=== PATIENT | female | born 1990 | race Caucasian/White ===

== ENCOUNTER 2016-11-27 12:14 | Emergency (ER) | payer SELFPAY | END 2016-11-27 13:33 | disposition home or self-care (01) | LOC: MADERS 12:14 → EDBD 12:14 → MADERS 13:33 | DX: J06.9 Acute upper respiratory infection, unspecified (principal); J02.9 Acute pharyngitis, unspecified; F17.210 Nicotine dependence, cigarettes, uncomplicated ==

== ENCOUNTER 2018-02-24 14:49 | Emergency (ER) | payer SELFPAY ==
[2018-02-24] MEDS ORDERED: Amoxicillin/Potassium Clav 875 MG TAB ONE (16:12)
[2018-02-24] MEDS ORDERED: HYDROcodone/Acetaminophen 10/325 mg Tablet ONE (16:12)
== END 2018-02-24 16:37 | disposition home or self-care (01) ==
LOC: MADERS 14:49
DX: H66.93 Otitis media, unspecified, bilateral (principal); F17.210 Nicotine dependence, cigarettes, uncomplicated
CPT/HCPCS: 99282

== ENCOUNTER 2018-04-23 19:14 | Emergency (ER) | payer SELFPAY | END 2018-04-23 19:48 | disposition home or self-care (01) | LOC: MADERS 19:14 | DX: S39.82XA Other specified injuries of lower back, initial encounter (principal); F17.210 Nicotine dependence, cigarettes, uncomplicated | CPT/HCPCS: 99406 ==

== ENCOUNTER 2019-04-18 08:59 | Emergency (ER) | payer SELFPAY ==
[2019-04-18 10:14] LABS: Pregnancy Test - Urine (BHCG) Negative (Negative); Pregu Control Background? CLEAR/WHITE (CLR/WHITE); Pregu Control Bar Appear? YES (CONTROL BAR); Specific Gravity 1.022 (1.002-1.036)
== END 2019-04-18 10:19 | disposition home or self-care (01) ==
LOC: MADERS 08:59
DX: S46.912A Strain of unspecified muscle, fascia and tendon at shoulder and upper arm level, left arm, initial encounter (principal); F17.210 Nicotine dependence, cigarettes, uncomplicated; X50.9XXA Other and unspecified overexertion or strenuous movements or postures, initial encounter
CPT/HCPCS: 81025; 93005

== ENCOUNTER 2019-08-03 07:40 | Emergency (ER) | payer BC ==
--- NOTE | 2019-08-03 08:19 | RAD ---
XR Knee Lt 4 View STANDARD HISTORY: Fall, left knee pain FINDINGS: No dislocation is identified. There is suggestion of an avulsion fracture involving the tibial spine.
== END 2019-08-03 08:42 | disposition home or self-care (01) ==
LOC: MADERS 07:40
DX: M25.562 Pain in left knee (principal); F41.9 Anxiety disorder, unspecified; F17.200 Nicotine dependence, unspecified, uncomplicated; W18.30XA Fall on same level, unspecified, initial encounter

== ENCOUNTER 2019-09-07 22:54 | Emergency (ER) | payer BC | END 2019-09-07 23:38 | disposition home or self-care (01) | LOC: MADERS 22:54 | DX: S61.211A Laceration without foreign body of left index finger without damage to nail, initial encounter (principal); M79.674 Pain in right toe(s); W26.0XXA Contact with knife, initial encounter | CPT/HCPCS: 99283 ==

== ENCOUNTER 2020-06-17 04:05 | Emergency (ER) | payer BC, SELFPAY ==
[2020-06-17] MEDS ORDERED: Ibuprofen 600 MG TAB ONE (04:42)
--- NOTE | 2020-06-17 09:16 | RAD ---
Exam: XR Foot Lt 3 View STANDARD HISTORY: Injury to left foot. COMPARISON: None FINDINGS: No acute fracture, dislocation, or other acute osseous abnormality is identified. Subjective soft tissue swelling is seen at the dorsal aspect of the foot and anterior to the ankle. IMPRESSION: Subcutaneous soft tissue swelling without evidence of an acute osseous abnormality.
== END 2020-06-17 04:47 | disposition home or self-care (01) ==
LOC: MADERS 04:05
DX: S93.401A Sprain of unspecified ligament of right ankle, initial encounter (principal); S90.31XA Contusion of right foot, initial encounter; F17.210 Nicotine dependence, cigarettes, uncomplicated; F41.9 Anxiety disorder, unspecified; W17.89XA Other fall from one level to another, initial encounter

== ENCOUNTER 2021-11-04 12:07 | Emergency (ER) | payer SELFPAY ==
[2021-11-04] MEDS ORDERED: Ibuprofen 800 MG TAB ONE (12:40)
[2021-11-04] MEDS ORDERED: Rabies Vaccine Human 2.5 UNITS VIAL ONE (12:59)
== END 2021-11-04 14:20 | disposition home or self-care (01) ==
LOC: MADERS 12:07
DX: S61.432A Puncture wound without foreign body of left hand, initial encounter (principal); L03.113 Cellulitis of right upper limb; F17.210 Nicotine dependence, cigarettes, uncomplicated; W55.03XA Scratched by cat, initial encounter
CPT/HCPCS: 90375; 90471; 90675; 96372

== ENCOUNTER 2023-04-10 19:39 | Emergency (ER) | payer SELFPAY ==
[2023-04-10] MEDS ORDERED: Acetaminophen 500 MG TAB ONE (20:54)
[2023-04-10] MEDS ORDERED: Ibuprofen 800 MG TAB ONE (20:54)
== END 2023-04-10 21:06 | disposition home or self-care (01) ==
LOC: MADERS 19:39
DX: S63.601A Unspecified sprain of right thumb, initial encounter (principal); F17.210 Nicotine dependence, cigarettes, uncomplicated; W18.30XA Fall on same level, unspecified, initial encounter
CPT/HCPCS: 29125